=== PATIENT | female | born 1945 | race Caucasian/White ===

== ENCOUNTER → 2024-01-26 13:32 | Outpatient (REF) | payer MEDICARE, OTHER, SELFPAY | LOC: WDC 13:32 | PROVIDERS: ATTENDING PHYSICIAN Family Medicine | DX: R92.8 Other abnormal and inconclusive findings on diagnostic imaging of breast (principal) | CPT/HCPCS: 77061; 77065 ==

== ENCOUNTER → 2024-04-23 08:57 | Outpatient (REF) | payer MEDICARE, OTHER, SELFPAY | LOC: HWRAD 08:57 | PROVIDERS: ATTENDING PHYSICIAN Internal Medicine Hematology & Oncology; FAMILY PHYSICIAN Family Medicine | DX: C82.08 Follicular lymphoma grade I, lymph nodes of multiple sites (principal) | CPT/HCPCS: 70491; 71260; 74177; Q9967 ==

== ENCOUNTER → 2024-07-18 10:54 | Outpatient (REF) | payer MEDICARE, OTHER, SELFPAY | LOC: WDC 10:54 | PROVIDERS: ATTENDING PHYSICIAN Family Medicine | DX: Z12.31 Encounter for screening mammogram for malignant neoplasm of breast (principal) | CPT/HCPCS: 77063; 77067 ==

== ENCOUNTER 2024-09-17 12:54 | Emergency (ER) | payer MEDICARE, OTHER, SELFPAY ==
[2024-09-17 12:56] VITALS: BP 198/105
[2024-09-17 14:23] VITALS: BP 186/92
[2024-09-17 14:25] VITALS: BP 186/92
[2024-09-17 14:48] LABS: % Basophils 0.6 % (0-2); % Eosinophils 1.3 % (0-6); % Immature Granulocytes 0.2 % (0-0.5); % Lymphocytes 20.6 % (20.5-51.1); % Monocytes 8.1 % (1.7-9.3); % Neutrophils 69.2 % (42.2-75.2); Absolute Eosinophils 0.1 10^3/uL (0-0.7); Absolute Monocytes 0.4 10^3/uL (0.1-0.6); Absolute Neutrophils 3.3 10^3/uL (1.4-6.5); Hematocrit 41.2 % (37.0-47.0); Hemoglobin 13.6 g/dL (12.0-16.0); Mean Corpuscular Hgb 28.8 pg (27.0-31.0); Mean Corpuscular Volume 87.3 fL (81.0-99.0); Mean Platelet Volume 12.2 fL (7.4-10.4); Nucleated Red Blood Cells % 0 %; Platelet Count 189 10^3/uL (130-400); Red Blood Cell Count 4.72 10^6/uL (4.20-5.40); Red Cell Dist. Width 13.5 % (11.5-14.5); White Blood Cell Count 4.8 10^3/uL (4.8-10.8)
[2024-09-17 15:03] LABS: ALT (SGPT) 38 U/L (0-35); AST (SGOT) 35 U/L (14-36); Albumin 4.4 g/dl (3.5-5.0); Alkaline Phosphatase 70 U/L (38-126); Blood Urea Nitrogen 12 mg/dl (7-17); Calcium 9.6 mg/dl (8.4-10.2); Carbon Dioxide 28 mmol/L (22-30); Chloride 103 mmol/L (98-107); Glucose 124 mg/dl (70-99); Potassium 3.7 mmol/L (3.5-5.1); Sodium 142 mmol/L (135-145); Total Bilirubin 0.6 mg/dl (0.2-1.3); Total Protein 6.8 g/dl (6.3-8.2); eGFR > 60.00
[2024-09-17] MEDS: NSS 1000 IV (15:21)
[2024-09-17] MEDS: ANTIVERT 25 MG PO (15:21)
[2024-09-17 15:34] VITALS: BP 168/95; BP 180/93; BP 182/101; PULSE 57; PULSE 67
--- NOTE | 2024-09-17 16:07 | ED.GENMED ---
History of Present Illness
General
Chief Complaint: Dizziness
Time Seen by Provider: 09/17/24 14:27
History of Present Illness
History of Present Illness:
79-year-old female with past medical history of hypertension and diabetes presenting to the emergency department for episode of dizziness. Patient reports around 730 this morning, she had intense dizziness while she was in bed. She tried to get
up, however everything was spinning, worsened by any type of head movement. Symptoms lasted about 45 minutes, have since slightly improved. Denies ever having this in the past. Denies any fever or recent illness. Denies auditory issues. Denies
ever having this issue in the past. Does note that her blood pressure has been elevated, is on 3 antihypertensive medications. She denies any chest pain or difficulty breathing. Denies weakness, numbness to her extremities, visual changes.
Denies additional acute medical complaints
Phy Exam
Physical Exam
Physical Exam:
General: Well-appearing, no clinical signs of dehydration, nontoxic and in no acute distress
HEENT: protecting airway, pupils equal and reactive. Horizontal nystagmus bilaterally
Neck: appears supple
CV: Normal heart rate, regular rhythm
Resp: No accessory muscle use, no increased work of breathing, lungs clear to auscultation bilaterally
Abd: Soft and non-distended, no tenderness to palpation, normal bowel sounds
Extremities: No deformities, no swelling, no erythema, sensation intact
Neuro: alert, no focal neurologic deficit
: deferred
Rectal: deferred
Psych: Normal affect
Skin: Intact
Course
Orders/Labs/Results
Orders:
Orders
09/17/24 12:56
Electrocardiogram (*1) Urgent
Reason for Study: Vertigo / Dizzy
EKG- Treatment ONCE
09/17/24 14:39
CMP [Comprehensive Metabolic Panel] Urgent
Complete Blood Count/With Diff Urgent
09/17/24 14:50
CT Head W/o Iv Contrast Urgent
Comment:
Reason For Exam: dizzy, HTN
Orthostatic VS- Treatment ONCE
0.9% Sodium Chloride 1000 ml [Nss] 1,000 ml IV BOLUS
Meclizine [Antivert] 25 mg PO NOW STA
Abnormal Lab Results
09/17/24
14:39
MPV 12.2 H fL
(7.4-10.4)
Absolute Lymphs (auto) 1.0 L 10^3/uL
(1.2-3.4)
Glucose 124 H mg/dl
(70-99)
ALT 38 H U/L
(0-35)
09/17/24 14:39
09/17/24 14:39
Vital Signs
Initial and Last Documented VS:
Initial Vital Signs
Temp Pulse Resp BP Pulse Ox
98.5 F 80 16 198/105 96
09/17/24 12:56 09/17/24 12:56 09/17/24 12:56 09/17/24 12:56 09/17/24 12:56
Last Documented Vital Signs
Temp Pulse Resp BP Pulse Ox
98.5 F 59 13 186/92 98
09/17/24 12:56 09/17/24 14:23 09/17/24 14:23 09/17/24 14:25 09/17/24 14:23
MDM/Problems Addressed
MDM/Problems Addressed:
79-year-old female with history of hypertension diabetes presenting for episode of dizziness this morning that last about 45 minutes. Vital signs on arrival significant for hypertension.
On exam, patient is well-appearing, no acute distress or discomfort. Unremarkable cardiac, pulmonary, neurologic exam. No focal neurologic deficits. Patient does have a mild horizontal nystagmus. Symptoms appear most consistent with vertigo, is
reporting overall improvement of symptoms, which is reassuring. EKG obtained, no acute ischemia, unchanged from EKG provided by patient and out patient facility. Will screen with laboratory analysis, troponin. In the setting of hypertension and
dizziness, will also obtain a CT brain imaging. Will treat with meclizine and reassess for improvement.
17:10 - Labs unremarkable. Patient ambulated steadily. CT brain without acute intracranial abnormality. Continue to suspect acute vertigo. Feel stable for discharge. Will prescription for meclizine. Return precautions discussed and patient
verbalized understanding
*EKG
Interpreted by ED Provider?: Yes
EKG Intrepretation Date: 09/17/24
EKG Intrepretation Time: 16:39
Interpretation: abnormal
Comparison EKG: no changes (from EKG provided by patient from outside facility)
Heart Rate: 66
Rate: normal
Rhythm: sinus and sinus arrhythmia
[place]: normal axis
Interval: normal interval
QRS Pattern: right bundle branch block
Ischemia: no ischemia
*Critical Care Note
Total Time (30-74mins, 75-104mins- exclusive of procedures): Not Applicable
ED Attending Note
-
Portions of this chart may have been created with voice recognition software.� Occasional wrong word or��sound alike� substitutions may have occurred due to the inherent limitations of voice recognition software.
Discharge Plan
Departure
Prescriptions:
No Action
amlodipine 5 MG tablet
5 mg PO DAILY
atenolol 50 MG tablet
50 mg PO DAILY
lisinopril 10 MG tablet
1 tab PO DAILY
metformin 500 MG tablet
500 mg PO BID
citalopram 10 MG tablet
5 mg PO DAILY
Vitamin D
1,000 mg PO DAILY
Interventions
Interventions:
*Risk Screen - Suicide Last Done: 09/17/24 14:26
*Neglect/Abuse Screening Last Done: 09/17/24 14:26
ED- Fall Risk Assessment Last Done: 09/17/24 14:26
*ED COVID-19 Vaccine History Last Done: 09/17/24 14:26
ED- Neurological Assessment Last Done: 09/17/24 14:26
ED- Cardiac Assessment Last Done: 09/17/24 14:26
Discharge Date and Time
Print Language: [place]
== END 2024-09-17 17:43 | disposition home or self-care (01) ==
LOC: EMR 12:54
PROVIDERS: EMERGENCY PHYSICIAN Student in an Organized Health Care Education/Training Program; FAMILY PHYSICIAN Family Medicine
DX: R42 Dizziness and giddiness (principal); I10 Essential (primary) hypertension; E11.9 Type 2 diabetes mellitus without complications; H55.09 Other forms of nystagmus
CPT/HCPCS: 99284; 96360; 70450; 80053; 85025; 93005

== ENCOUNTER → 2024-10-12 08:58 | Outpatient (REF) | payer MEDICARE, OTHER, SELFPAY | LOC: RCS 08:58 | PROVIDERS: ATTENDING PHYSICIAN Internal Medicine Cardiovascular Disease; FAMILY PHYSICIAN Family Medicine | DX: R42 Dizziness and giddiness (principal) | CPT/HCPCS: 93306 ==

== ENCOUNTER → 2025-07-26 13:39 | Outpatient (REF) | payer MEDICARE, OTHER, SELFPAY ==
[2025-07-26 15:11] LABS: Blood Urea Nitrogen 18 mg/dl (7-17)
== END ==
LOC: WDC 13:39
PROVIDERS: ATTENDING PHYSICIAN Internal Medicine Hematology & Oncology; FAMILY PHYSICIAN Family Medicine
DX: Z12.31 Encounter for screening mammogram for malignant neoplasm of breast (principal); C82.08 Follicular lymphoma grade I, lymph nodes of multiple sites
CPT/HCPCS: 36415; 82565; 84520

== ENCOUNTER → 2025-08-20 09:05 | Outpatient (REF) | payer MEDICARE, OTHER, SELFPAY | LOC: RAD 09:05 | PROVIDERS: ATTENDING PHYSICIAN Internal Medicine Hematology & Oncology; FAMILY PHYSICIAN Family Medicine | DX: C82.08 Follicular lymphoma grade I, lymph nodes of multiple sites (principal) | CPT/HCPCS: 71260; 74177; Q9967 ==